=== PATIENT | female | born 1960 | race African-American/Black ===

== ENCOUNTER 2017-02-05 20:05 | Emergency (ER) | payer MEDICARE, OTHER ==
[~2017-02-05] VITALS: Ht 170.2 cm; Wt 98.5 kg
[~2017-02-05 20:05] MED LIST: ACCUKIT; LEVEINJ SQ; LEVEMIR SQ; MACR100C PO; PYRI200T4 PO; SIMV20TA PO
[2017-02-05 20:06] VITALS: BP 117/56; PULSE 100; RESP 16; TEMP 99.3; O2SAT 96
== END 2017-02-05 22:48 | disposition left against medical advice (07) ==
LOC: NED 20:05
DX: M79.606 Pain in leg, unspecified (principal)
CPT/HCPCS: 99281